=== PATIENT | male | born 1960 | race Two or more races ===

== ENCOUNTER → 2018-09-06 | Day surgery (SDC) | payer OTHER ==
[~2018-09-06] VITALS: Ht 160 cm; Wt 77.1 kg
[~2018-09-06] MED LIST: FLUMAZENIL 0.1 MG/ML INJ 10ML MDV IV ONE; NALOXONE HCL 0.4 MG/ML VIAL ONE; SODIUM CHLORIDE LOCK 10 ML ONE; diphenhdrAMINE HCL 50 MG/1 ML VL ONE
[2018-09-06 08:02] LABS: Basophils # (auto) 0 uL; Basophils % (auto) 0.5 % (0.0-2.0); Eosinophils # (auto) 0.1 uL; Eosinophils % (auto) 2.5 % (0.0-7.0); Hematocrit 46.5 % (41.0-53.0); Hemoglobin 15.8 g/dL (13.5-17.5); Lymphocytes % (auto) 19.1 % (10.0-50.0); Mean Corpuscular Hemoglobin 29.6 pg (28.0-32.0); Mean Corpuscular Volume 86.9 fL (80.0-100.0); Monocytes # (auto) 0.3 uL; Monocytes % (auto) 6.6 % (0.0-12.0); Neutrophils # (auto) 3.6 uL; Neutrophils % (auto) 71.3 % (37.0-80.0); Nucleated Red Blood Cells % 0.1 %; Platelet Count (auto) 157 10^3/uL (140-450); Red Blood Cells 5.35 10^6/uL (4.5-5.90); Red Cell Distribution Width 13.7 % (11.8-14.3)
[2018-09-06 08:31] LABS: INR 1.02 (0.9-1.15); Partial Thromboplastin Time 27.9 sec (23.78-33.04); Prothrombin Time 10.9 sec (9.27-12.13)
[2018-09-06] MEDS: fentaNYL CITRATE 100 MCG/2 ML VL ONE ×2 (09:21→09:25)
[2018-09-06] MEDS: MIDAZOLAM HCL 5 MG/ML-1ML VIAL ONE ×3 (09:21→09:29)
[2018-09-06 10:03] VITALS: BP 126/84
== END | disposition home or self-care (01) ==
LOC: SUR 07:05
PROVIDERS: ATTEND Internal Medicine Gastroenterology
DX: K64.8 Other hemorrhoids (principal)
CPT/HCPCS: 36415; 45378; 85025; 85610; 85730; J1200; J2250; J3010; J7030; 99152